=== PATIENT | male | born 1960 ===

== ENCOUNTER 2017-09-10 23:51 | Emergency (ER) | payer MEDICAID ==
[2017-09-10 23:52] VITALS: BMI 28.3
[2017-09-11 00:04] VITALS: RESP 18; TEMP 99.5
[2017-09-11] MEDS ORDERED: Albuterol 0.083% Inhal Sol (2.5 mg/3 mL) UD INH STA (00:13)
--- NOTE | 2017-09-11 00:18 | ED PDOC ---
Arrival/HPI - General Chief Complaint: Flu-like Symptoms Time Seen by Provider: 09/11/17 00:05 Historian: Patient, Electrician Wiring (Kenna Gonzaleztiz) - History of Present Illness Narrative History of Present Illness (Text): 09/11/17 00:13 A 57 year old male, with no significant past medical history, (Kenna Adair translated) presents to the emergency department complaining of 1 week duration chest discomfort and cough with associated phlegm. He states that his chest pain is exacerbated when he coughs. The patient states that he was given medication for his chest discomfort and has been taking NyQuil for his cough with no improvement of his symptoms. The patient denies fevers, chills, headache , dizziness, abdominal pain, nausea, vomiting, diarrhea, back pain, neck pain, urinary/bowel changes, or any other complaint. PMD: Dr. Gonsales Time/Duration: 1 week Symptom Onset: Sudden Symptom Course: Unchanged Activities at Onset: Rest, Light Context: Home Past Medical History - Provider Review Nursing Documentation Reviewed: Yes - Infectious Disease Hx of Infectious Diseases: None - Tetanus Immunization Tetanus Immunization: Unknown - Cardiac Hx Cardiac Disorders: (Intermittent chest pains 1 month) Hx Congestive Heart Failure: No Hx Hypertension: Yes - Pulmonary Hx Chronic Obstructive Pulmonary Disease (COPD): No - Neurological HX Cerebrovascular Accident: No - Endocrine/Metabolic Hx Endocrine Disorders: No - Hematological/Oncological Hx Blood Disorders: No Hx Blood Transfusions: No - Musculoskeletal/Rheumatological Hx Falls: No - Psychiatric Hx Substance Use: No - Surgical History Hx Cardiac Catheterization: Yes Hx Coronary Stent: Yes - Anesthesia Hx Anesthesia: Yes Hx Anesthesia Reactions: No Hx Malignant Hyperthermia: No Family/Social History - Physician Review Nursing Documentation Reviewed: Yes Family/Social History: No Known Family HX Smoking Status: Unknown If Ever Smoked Hx Alcohol Use: No Hx Substance Use: No Allergies/Home Meds Allergies/Adverse Reactions: Allergies No Known Allergies Allergy (Verified 08/09/16 17:01) Review of Systems - Physician Review All systems were reviewed & negative as marked: Yes - Review of Systems Constitutional: absent: Fevers, Night Sweats Respiratory: Cough, Sputum Cardiovascular: Chest Pain (Chest discomfort) Gastrointestinal: absent: Abdominal Pain, Stool Changes, Diarrhea, Nausea, Vomiting Genitourinary Male: absent: Urinary Output Changes Musculoskeletal: absent: Back Pain, Neck Pain Neurological: absent: Headache, Dizziness Physical Exam Vital Signs Reviewed: Yes Vital Signs Temp Pulse Resp BP Pulse Ox 09/11/17 01:04 87 18 124/53 L 97 09/11/17 00:01 99.5 F 82 18 131/84 95 Temperature: Afebrile Blood Pressure: Normal Pulse: Regular Respiratory Rate: Normal Appearance: Positive for: Well-Appearing, Non-Toxic, Comfortable Pain Distress: None Mental Status: Positive for: Alert and Oriented X 3 - Systems Exam Head: Present: Atraumatic, Normocephalic Pupils: Present: PERRL Extroacular Muscles: Present: EOMI Conjunctiva: Present: Normal Mouth: Present: Moist Mucous Membranes Neck: Present: Normal Range of Motion Respiratory/Chest: Present: Decreased Breath Sounds (Decreased breath sounds on the right. ), Rhonchi (Diffuse rhonchi). No: Wheezes Cardiovascular: Present: Regular Rate and Rhythm, Normal S1, S2. No: Murmurs Abdomen: Present: Normal Bowel Sounds. No: Tenderness, Distention, Peritoneal Signs Back: Present: Normal Inspection Upper Extremity: Present: Normal Inspection. No: Cyanosis, Edema Lower Extremity: Present: Normal Inspection. No: Edema Neurological: Present: GCS=15, CN II-XII Intact, Speech Normal Skin: Present: Warm, Dry, Normal Color. No: Rashes Psychiatric: Present: Alert, Oriented x 3, Normal Insight, Normal Concentration Medical Decision Making ED Course and Treatment: 09/11/17 00:20 Impression: A 57 year old male presents to the emergency department complaining of 1 week duration chest discomfort and productive cough. Plan: -- EKG -- Chest X-ray -- Albuterol -- Reassess and disposition Progress Notes: 09/11/17 01:20: Chest X-ray read and interpreted by me shows no acute disease. - Lab Interpretations I have reviewed the lab results: Yes - RAD Interpretation Radiology Orders: 09/11/17 00:13 CHEST PORTABLE [RAD] Stat - EKG Interpretation Interpreted by ED Physician: Yes Type: 12 lead EKG - Medication Orders Current Medication Orders: Amoxicillin/Clavulanate Potassium (Augmentin 875 Mg-125 Mg Tab) 1 tab PO STAT STA PRN Reason: Protocol Stop: 09/11/17 01:21 Discontinued Medications Albuterol Sulfate (Albuterol 0.083% Inhal Regi (2.5 Mg/3 Ml) Ud) 2.5 mg INH STAT STA Stop: 09/11/17 00:14 Last Admin: 09/11/17 00:25 Dose: 2.5 mg - Scribe Statement The provider has reviewed the documentation as recorded by the Kenna Adair Provider Mahamedibe Attestation: All medical record entries made by the Scribe were at my direction and personally dictated by me. I have reviewed the chart and agree that the record accurately reflects my personal performance of the history, physical exam, medical decision making, and the department course for this patient. I have also personally directed, reviewed, and agree with the discharge instructions and disposition. Disposition/Present on Arrival - Present on Arrival Any Indicators Present on Arrival: No History of DVT/PE: No History of Uncontrolled Diabetes: No Urinary Catheter: No History of Decub. Ulcer: No History Surgical Site Infection Following: None - Disposition Have Diagnosis and Disposition been Completed?: Yes Diagnosis: Bronchitis Disposition: HOME/ ROUTINE Disposition Time: 01:30 Patient Plan: Discharge Condition: STABLE Discharge Instructions (ExitCare): Acute Bronchitis Prescriptions: Amoxicillin/Clavulanate [Augmentin 875 MG-125 MG] 1 tab PO TID #21 tab Promethazine DM [Phenergan DM Syrup] 5 ml PO TID PRN #80 ml PRN Reason: Cough Forms: [employer] (Haitian)
[2017-09-11 01:05] VITALS: BP 124/53; PULSE 87; O2SAT 97
[2017-09-11] MEDS ORDERED: Promethazine DM 6.25 mg-15 mg/5 ml Syrup PO PRN (01:20)
[2017-09-11] MEDS ORDERED: Amoxicillin-Clav 875-125 mg Tab PO STA (01:20)
--- NOTE | 2017-09-11 09:18 | RAD ---
HISTORY: cough COMPARISON: 07/21/2016. FINDINGS: LUNGS: The lungs are well inflated. There is subsegmental atelectasis in the left lower lobe. PLEURA: No significant pleural effusion identified, no pneumothorax apparent. CARDIOVASCULAR: Normal. OSSEOUS STRUCTURES: No significant abnormalities. VISUALIZED UPPER ABDOMEN: Normal. OTHER FINDINGS: None. IMPRESSION: No active pulmonary disease.
--- NOTE | 2017-09-11 14:59 | CARD ---
APPROVED REPORT EKG Measurement Heart [id number] <Conclusion> Normal sinus rhythm Septal infarct, age undetermined Abnormal ECG
== END 2017-09-11 01:37 | disposition home or self-care (01) ==
LOC: ED 23:51
DX: J20.9 Acute bronchitis, unspecified (principal); I10 Essential (primary) hypertension

== ENCOUNTER 2018-06-28 10:47 | Emergency (ER) | payer MEDICAID ==
[2018-06-28 11:04] VITALS: BMI 28.0
[2018-06-28 11:12] VITALS: RESP 18
--- NOTE | 2018-06-28 11:42 | ED PDOC ---
Arrival/HPI - General Historian: Patient - History of Present Illness Narrative History of Present Illness (Text): 06/28/18 11:34 58 y o male Past medical history CAD presents to the emergency department complaining of L wrist and hand pain, and R knee pain s/p fall. States that his mechanical fall was at home on 06/16/18, states he tripped, denies hitting his head or loss of consciousness. States he tried taking aspirin for the pain which did not help with symptoms, last took it yesterday. Rates pain as 10/10 currently, non radiating. States he is able to ambulate with R knee pain but that the pain worsens later in the day. Pt states he went to his PMD after the i njury and had posterior splint placed from R ankle to R knee, which is only helping a little with symptoms. States he is unable to move L wrist in flexion or extension, states it has been swollen since the mechanical fall. Denies headache, dizziness, vision changes, chest pain, shortness of breath, n/v/d/c, abd pain, numbness/tingling in extremities, sciatic pain, urinary complaints, or other symptoms. Past medical history: CAD PSurgHx: hernia repair, cholecystectomy, cardiac cath 2 y ago for STEMI Allergies: NKDA Home meds: none Fam hx: denies Soc hx: denies smoking, EtOH, or illicit drug use PMD: Dr. Oviedo Time/Duration: > week (2) Symptom Onset: Sudden Symptom Course: Unchanged Quality: Stabbing Severity Level: 10 Activities at Onset: Light Context: Exertion, Home, Tripped <Henry Manning - Last Filed: 06/28/18 13:27> <Maty Lombardi - Last Filed: 06/28/18 13:58> - General Chief Complaint: Finger,Hand,&Wrist Time Seen by Provider: 06/28/18 11:16 Past Medical History - Provider Review Nursing Documentation Reviewed: Yes - Infectious Disease Hx of Infectious Diseases: None - Tetanus Immunization Tetanus Immunization: Unknown - Cardiac Hx Cardiac Disorders: (Intermittent chest pains 1 month) Hx Congestive Heart Failure: No Hx Hypertension: Yes - Pulmonary Hx Chronic Obstructive Pulmonary Disease (COPD): No - Neurological HX Cerebrovascular Accident: No - Endocrine/Metabolic Hx Endocrine Disorders: No - Hematological/Oncological Hx Blood Disorders: No - Musculoskeletal/Rheumatological Hx Falls: No - Psychiatric Hx Substance Use: No - Surgical History Hx Cardiac Catheterization: Yes Hx Coronary Stent: Yes - Anesthesia Hx Anesthesia: Yes Hx Anesthesia Reactions: No Hx Malignant Hyperthermia: No <Henry Manning - Last Filed: 06/28/18 13:27> Family/Social History - Physician Review Nursing Documentation Reviewed: Yes Family/Social History: No Known Family HX Smoking Status: Former Smoker Hx Alcohol Use: No Hx Substance Use: No <Henry Manning - Last Filed: 06/28/18 13:27> Allergies/Home Meds <Henry Manning - Last Filed: 06/28/18 13:27> <Maty Lombardi - Last Filed: 06/28/18 13:58> Allergies/Adverse Reactions: Allergies No Known Allergies Allergy (Verified 08/09/16 17:01) Review of Systems - Physician Review All systems were reviewed & negative as marked: Yes - Review of Systems Constitutional: absent: Fatigue, Weight Change, Fevers, Night Sweats Eyes: absent: Vision Changes ENT: absent: Hearing Changes, Tinnitus Respiratory: absent: SOB, Cough, Wheezing Cardiovascular: absent: Chest Pain, Palpitations, Edema, DILL Gastrointestinal: absent: Abdominal Pain, Stool Changes, Constipation, Diarrhea, Nausea, Vomiting Genitourinary Male: absent: Dysuria, Frequency, Urinary Output Changes Musculoskeletal: Joint Swelling. absent: Back Pain, Neck Pain Skin: absent: Rash, Laceration Neurological: absent: Headache, Dizziness, Focal Weakness Endocrine: absent: Diaphoresis Hemo/Lymphatic: absent: Adenopathy <Henry Manning - Last Filed: 06/28/18 13:27> Physical Exam Vital Signs Reviewed: Yes Vital Signs Temp Pulse Resp BP Pulse Ox 06/28/18 10:48 98.8 F 94 H 18 118/85 95 Temperature: Afebrile Blood Pressure: Normal Pulse: Regular Respiratory Rate: Normal Appearance: Positive for: Well-Appearing, Non-Toxic, Comfortable Pain Distress: Moderate Mental Status: Positive for: Alert and Oriented X 3 - Systems Exam Head: Present: Atraumatic, Normocephalic Pupils: Present: PERRL Extroacular Muscles: Present: EOMI Conjunctiva: Present: Normal Mouth: Present: Moist Mucous Membranes Respiratory/Chest: Present: Clear to Auscultation, Good Air Exchange. No: Respiratory Distress, Accessory Muscle Use, Wheezes, Rales, Rhonchi Cardiovascular: Present: Regular Rate and Rhythm, Normal S1, S2. No: Murmurs, Rub, Gallop Abdomen: Present: Normal Bowel Sounds. No: Tenderness, Distention, Guarding, Mass/Organomegaly Back: Present: Normal Inspection. No: Paraspinal Tenderness Upper Extremity: Present: NORMAL PULSES, Tenderness (to palpation on dorsal side of L wrist in midline; negative Tinel's test, no tenderness at anatomic snuffbox), Swelling (Noted at L wrist), Neurovascularly Intact, Capillary Refill < 2s, Other (Decreased ROM of L wrist in flexion and extension). No: Cyanosis, Temperature Abnormalties Lower Extremity: Present: Normal Inspection, NORMAL PULSES, Normal ROM, Tenderness (to palpation at patellar tendon distal to kneecap of R knee), Neurovascularly Intact, Capillary Refill < 2 s. No: Edema, CALF TENDERNESS, Cyanosis, Swelling, Erythema, Deformity, Temperature Abnormalties Neurological: Present: GCS=15, CN II-XII Intact, Speech Normal Skin: Present: Warm, Dry, Normal Color. No: Rashes Psychiatric: Present: Alert, Oriented x 3, Normal Insight, Normal Concentration <Henry Manning - Last Filed: 06/28/18 13:27> Vital Signs Temp Pulse Resp BP Pulse Ox 06/28/18 10:48 98.8 F 94 H 18 118/85 95 <Maty Lombardi - Last Filed: 06/28/18 13:58> Medical Decision Making ED Course and Treatment: 06/28/18 11:46 58 y o male Past medical history CAD presents with L wrist pain and R knee pain s/p mechanical fall 2 weeks ago. R/o fracture. Plan: -XRs -Toradol Will continue to monitor. 06/28/18 13:27 Reassessed pt, states he is feeling better s/p Toradol injection. XRs negative for acute fracture or dislocation, results discussed with pt at bedside. Instructed pt to follow with his PMD within 2-3 days of ER discharge. Advised to call his PMD or report to his nearest emergency department if his symptoms worsen. - RAD Interpretation Radiology Orders: 06/28/18 11:30 KNEE W PATELLA RIGHT 3 VIEW [RAD] Stat 06/28/18 11:31 HAND LEFT 3 VIEWS ROUTINE [RAD] Stat WRIST, LEFT 3 VIEWS [RAD] Stat - Medication Orders Current Medication Orders: Ketorolac Tromethamine (Toradol) 15 mg IM STAT STA Stop: 06/28/18 11:33 <Henry Manning - Last Filed: 06/28/18 13:27> ED Course and Treatment: 06/28/18 13:20 Patient seen by resident and then evaluated by me. Complaining of persistent R knee pain and L wrist pain after fall 10 days ago. No complaint of twisting R knee but direct trauma to R knee with pinpoint tenderness on patellar. Normal ROM. No significant effusion. L wrist is mildly swollen with some decreased ROM but no erythema and no snuff box tenderness. Xrays of L wrist, L hand, and R knee negative. Given detailed return instructions. Patient ambulating around without issue and feels better after pain medication 06/28/18 13:56 - RAD Interpretation Radiology Orders: 06/28/18 11:30 KNEE RIGHT 2 VIEWS (AP & LAT) [RAD] Stat 06/28/18 11:31 HAND LEFT 3 VIEWS ROUTINE [RAD] Stat WRIST, LEFT 3 VIEWS [RAD] Stat - Medication Orders Current Medication Orders: Discontinued Medications Ketorolac Tromethamine (Toradol) 15 mg IM STAT STA Stop: 06/28/18 11:33 Last Admin: 06/28/18 11:54 Dose: 15 mg MAR Pain Assessment Document 06/28/18 11:54 SRE (Rec: 06/28/18 11:55 SRE [id number]) Pain Reassessment Is this a pain reassessment? Yes Sleep Is patient sleeping during reassessment? No Pain Scale Used Protocol: PSCALES Pain Scale Used Numeric Location Left, Right or Bilateral Left Pain Location Body Site Wrist Description Description Intermittent IM Administration Charges Document 06/28/18 11:54 SRE (Rec: 06/28/18 11:55 SRE [id number]) Charges for Administration # of IM Administrations 1 <Maty Lombardi - Last Filed: 06/28/18 13:58> Disposition/Present on Arrival - Present on Arrival Any Indicators Present on Arrival: No History of DVT/PE: No History of Uncontrolled Diabetes: No Urinary Catheter: No History of Decub. Ulcer: No History Surgical Site Infection Following: None - Disposition Have Diagnosis and Disposition been Completed?: Yes Disposition Time: 13:31 Patient Plan: Discharge <Henry Manning - Last Filed: 06/28/18 13:27> <Maty Lombardi - Last Filed: 06/28/18 13:58> - Disposition Diagnosis: Knee pain, right, Left wrist pain, Fall Disposition: HOME/ ROUTINE Condition: IMPROVED Discharge Instructions (ExitCare): Preventing Falls in the Older Adult, Knee Pain (DC) Print Language: UKRAINIAN Additional Instructions: Por favor, va a la clinica de doctor primaria en 2-3 hayden despues de salir de ER para examen. Puede raman Ibuprofen cada 4-6 horas para symptomas de dolor. Tiene symptomas no mas [place] or mas mal, llama a la doctor primaria or va a la departamento de emergencia de cerca. Referrals: FAMILY PROVIDER,NO [Primary Care Provider] - Follow up with primary Hang Oviedo MD [Medical Doctor] - Follow up with primary Forms: [facility] (Chinese)
--- NOTE | 2018-06-28 13:02 | RAD ---
PROCEDURE: Left Hand Radiographs. HISTORY: L hand pain s/p fall COMPARISON: None. FINDINGS: BONES: Bone alignment is normal. There is periarticular bone demineralization there is no acute displaced fracture or bone destruction. JOINTS: Normal. No osteoarthritic changes. SOFT TISSUES: Normal. OTHER FINDINGS: None. IMPRESSION: No acute fracture or dislocation.
--- NOTE | 2018-06-28 13:03 | RAD ---
Date of service: 06/28/2018 PROCEDURE: Left Wrist Radiographs. HISTORY: L wrist pain s/p fall COMPARISON: None. FINDINGS: BONES: Bone alignment and mineralization are normal. There is no acute displaced fracture or bone destruction. JOINTS: Normal. No dislocation. SOFT TISSUES: Normal. OTHER FINDINGS: None. IMPRESSION: No acute fracture or dislocation.
--- NOTE | 2018-06-28 13:08 | RAD ---
Date of service: 06/28/2018 PROCEDURE: Right Knee Radiographs. HISTORY: R knee pain s/p fall COMPARISON: None. FINDINGS: BONES: Bone alignment and mineralization are normal. There is no acute displaced fracture or bone destruction. JOINTS: Normal. No osteoarthritis. JOINT EFFUSION: There is a small suprapatellar joint effusion. OTHER FINDINGS: None. IMPRESSION: No acute fracture or dislocation.
[2018-06-28 13:36] VITALS: BP 124/84; PULSE 84; TEMP 98.4; O2SAT 96
== END 2018-06-28 13:36 | disposition home or self-care (01) ==
LOC: ED 10:47
DX: M25.561 Pain in right knee (principal); M25.532 Pain in left wrist; W01.0XXA Fall on same level from slipping, tripping and stumbling without subsequent striking against object, initial encounter; Y92.009 Unspecified place in unspecified non-institutional (private) residence as the place of occurrence of the external cause
CPT/HCPCS: 73110; 73130; 73560; 96372; 99283; J1885